=== PATIENT | female | born 1940 | race Hispanic/Latino ===

== ENCOUNTER → 2018-08-13 | Day surgery (SDC) | payer MEDICAID, OTHER ==
[2018-08-13] VITALS (9 sets, daily range): BP systolic 137–162; BP diastolic 61–73
[~2018-08-13] VITALS: Ht 162.6 cm; Wt 63.5 kg
[~2018-08-13] MED LIST: FENTANYL CITRATE PF 50 MCG/1 ML 2ML VIAL ONE; GLUCAGON 1MG KIT 1 MG ML ONE; HIGH BP MEDS; INDOMETHACIN 50 MG SUPP.RECT RC SCH; IOHEXOL-350 50ML VIAL IV ONE; METFORMIN; PROPOFOL 10 MG/ML 20ML VIAL IV ONE; SODIUM CHLORIDE 0.9% 1000ML 1,000 ML IV ONE; SUCCINYLCHOLINE CHLORIDE 20 MG/ML 10 ML VIAL ONE
--- NOTE | 2018-08-13 10:40 | NUR ---
POST RECEIVED PT FROM PACU , S/P ERCP EUS, PT AWAKE AND ALERT , NO DISTRESS NOTED. DENIED ANY PAIN OR DISCOMFORTS.
--- NOTE | 2018-08-13 11:12 | NUR ---
REPORT REPORT CALLED TO SAMREEN RÍOS RN AT [facility],AWAITING FOR EMS TO PROPOSAL EDITOR PATIENT , PT AWAKE AND ALERT , PIV REMOVED SINCE IT WASN'T FLUSHING, SITE ASYMPTOMATIC, CATHETER INTACT
== END ==
LOC: ENDO 07:28
PROVIDERS: ATTEND Internal Medicine
DX: Z46.59 Encounter for fitting and adjustment of other gastrointestinal appliance and device (principal); K44.9 Diaphragmatic hernia without obstruction or gangrene; K83.1 Obstruction of bile duct; K31.89 Other diseases of stomach and duodenum; Z96.89 Presence of other specified functional implants; K83.8 Other specified diseases of biliary tract; I10 Essential (primary) hypertension; Z79.899 Other long term (current) drug therapy; Z98.890 Other specified postprocedural states
CPT/HCPCS: 43237; 43261; 43273; 43276; 74330; 82948 ×2; 88104; 88305; 93005; A4606; C1769; C2625; J0330; J1610; J2704; J3010; J7030; Q9967; 43274; 43275